=== PATIENT | female | born 1985 | race Caucasian/White ===

== ENCOUNTER 2023-10-08 14:00 | Emergency (ER) | payer OTHER, SELFPAY ==
[2023-10-08 14:09] VITALS: BP 132/97; PULSE 91; RESP 18; TEMP 36.8; O2SAT 97; BMI 35.0
[2023-10-08 14:37] LABS: Basophils % 0.4 %; Eosinophils # 0.1 10^3/uL (0.0-0.8); Eosinophils % 1.6 %; Hematocrit 47.6 % (36-47); Lymphocytes # 2.7 10^3/uL (0.8-4.8); Lymphocytes % 37.2 %; Mean Corpuscular HGB Conc 34.5 g/dL (30-55); Mean Corpuscular Hemoglobin 36.4 pg (27-33); Mean Corpuscular Volume 105.5 fl (85-98); Mean Platelet Volume 10.8 fL (7.4-10.4); Monocytes # 0.9 10^3/uL (0.2-0.9); Monocytes % 12.2 %; Neutrophils # 3.53 10^3/uL (1.8-7.7); Neutrophils % 48.3 %; Nucleated Red Blood Cells % 0 %; Platelet Count 169 10^3/cmm (157-399); Red Blood Count 4.51 10^6/uL (3.85-5.65); Red Cell Distribution Width 14.9 % (12.1-15.1); White Blood Count 7.31 10^3/uL (3.29-11.43)
[2023-10-08 14:52] LABS: Alanine Aminotransferase 26 U/L (0-33); Albumin Level 3.9 g/dL (3.5-5.2); Alkaline Phosphatase 90 U/L (35-105); Anion Gap 18.8 (5-19); Aspartate Amino Transferase 37 U/L (0-32); Blood Urea Nitrogen 15 mg/dL (6-20); Calcium 9.5 mg/dL (8.5-10.5); Carbon Dioxide 28 mmol/L (22-29); Chloride 95 mmol/L (98-107); Creatinine Clr Calc Pharmacy 92.0166; Globulin 4.5 g/dL (1.3-4.6); Glomerular Filtration Rate 79.4 mL/min (90-130); Glucose 98 mg/dL (65-115); Lipase 26 U/L (13-60); Osmolality Calculated 287 mOsm/kg (285-295); Potassium 3.8 mmol/L (3.5-5.1); Sodium 138 mmol/L (136-145); Total Bilirubin 0.8 mg/dL (0.15-1.2); Total Protein 8.4 g/dL (6.6-8.7)
[2023-10-08 15:01] LABS: HCG, Serum Qual Negative (Negative)
--- NOTE | 2023-10-08 16:59 | CTR_ITS ---
PROCEDURE INFORMATION: Exam: CT Abdomen And Pelvis With Contrast Exam date and time: 10/08/2023 5:32 PM Age: 38 years old Clinical indication: Nausea and vomiting; Abdominal pain; Generalized; Prior surgery; Surgery date: 6+ months; Surgery type: 5 csections, gallbladder, ectopic preg where they took one tube; Additional info: Abd pain TECHNIQUE: Imaging protocol: Computed tomography of the abdomen and pelvis with contrast. Axial, coronal and sagittal reformatted images were created and reviewed. Radiation optimization: All CT scans at this facility use at least one of these dose optimization techniques: automated exposure control; mA and/or kV adjustment per patient size (includes targeted exams where dose is matched to clinical indication); or iterative reconstruction. Contrast material: OMNI 350; Contrast volume: 100 ml; Contrast route: INTRAVENOUS (IV); COMPARISON: No relevant prior studies available. RADIATION DOSE METRICS: Total DLP (mGy-cm): 818.92 FINDINGS: Diaphragm: Small hiatal hernia. Liver: Mild hepatomegaly. Gallbladder and biliary ducts: Status post cholecystectomy. No biliary ductal dilatation. Pancreas: Unremarkable. Spleen: 5 mm low-density splenic lesion, too small to characterize. Adrenal glands: Normal. No mass. Kidneys and ureters: 7 mm low-density right renal lesion, too small to characterize sacral follow-up no radiodense calculi. No hydronephrosis. Stomach and bowel: Moderate amount of retained stool in the colon. Colonic diverticulosis without evidence of diverticulitis. No obstruction. No bowel wall Scattered colonic diverticula without evidence of diverticulitis. No obstruction. No bowel wall thickening. No pneumatosis. Appendix: Normal. Intraperitoneal space: No free fluid. No organized fluid collection. No free air. Vasculature: Mild atherosclerotic disease. No aneurysm or dissection. Lymph nodes: No pathologically enlarged lymph nodes. Urinary bladder: Decompressed urinary bladder, which limits evaluation for wall thickening. Reproductive: 3.3 x 3.2 cm left adnexal cystic lesion, likely a follicular cyst. Bones/joints: No acute osseous abnormality. Degenerative changes. Soft tissues: Midline ventral pelvic hernia, containing nonobstructed small bowel. CT/CT abdomen pelvis w con* [id number]: 1[address] No CT evidence of acute intra-abdominal or pelvic pathology. 2. Additional findings, as above. COMMENTS: Consistent with the [employer]'s Incidental Findings Committee white paper (J Am Maki Radiol 2018): Any incidental renal lesion less than 1 cm or classified as too small to characterize, or any incidental cystic renal lesion characterized as simple-appearing, is likely benign. No follow-up imaging is recommended for these lesions per consensus recommendations based on imaging criteria.
[2023-10-08 17:06] VITALS: BP 143/99; PULSE 63; O2SAT 92
--- NOTE | 2023-10-08 17:08 | ED_ITS ---
HPI - Abdominal Pain 2 General: Chief Complaint: Abdominal Pain Stated Complaint: abd pain, vomitting Time Seen by Provider: 10/08/23 16:46 Source: patient Mode of arrival: ambulatory History of Present Illness: 38-year-old female who presents to the e mergency room with abdominal pain and vomiting for the last 8 days has not been eating or drinking. Has had multiple previous sections still has her appendix and gallbladder [place]. She states pain is midline both supra and infraumbilical. She denies dysuria urgency or frequency. No fever sweats or chills. Has been very nauseous feels like she needs to vomit no diarrhea no hematochezia melena hematemesis coffee- ground emesis no dysuria urgency or frequency no history of kidney stones MD elicited complaint: abdominal pain Onset (ago): day(s) (8) Pain Consistency: constant Location: Diffuse Severity: severe Quality: cramping Exacerbating factors: eating Relieving factors: nothing Associated Symptoms: Denies anorexia, belching, bloating, change in bowel habits, change in stool character, chills, coffee ground emesis, constipation, GI cramping, diarrhea, dyspepsia, dysuria, excessive flatus, fever(s), heartburn, hematochezia, hematuria, hematemesis, fecal incontinence, loose stools, melena, nausea, poor appetite, syncope and vomiting Review of Systems 2 Const: Denies: fever(s) or chills Card: Denies: syncope Resp: Denies: dyspnea GI: Reports: abdominal pain; Denies: nausea, vomiting, hematemesis, coffee ground emesis, heartburn, diarrhea, constipation, bloating, GI cramping, belching, excessive flatus, fecal incontinence, change in bowel habits, change in stool character, hematochezia or melena : Denies: dysuria or hematuria Musc: Denies: neck pain or back pain Skin/Breast: Denies: rash Physical Exam 2 Const: GENERAL APPEARANCE: cooperative and comfortable O RIENTATION/CONSCIOUSNESS: Yes awake, Yes oriented to person, Yes oriented to place and Yes oriented to time HENMT: COMMON NORMALS: normocephalic, atraumatic and hearing grossly normal bilaterally HEAD & SCALP: normocephalic and atraumatic Resp: COMMON NORMALS: normal respiratory effort, No retractions, No use of accessory muscles and clear to auscultation bilaterally AUSCULTATION: clear to auscultation bilaterally Cardio: COMMON NORMALS: regular rate, regular rhythm and No murmurs present (Cardio) RATE: regular rate RHYTHM: regular rhythm GI: COMMON NORMALS: No hepatosplenomegaly present AUSCULTATION: Yes Hypoactive bowel sounds present PALPATION: Yes Tenderness to palpation present (GI) (Diffusely tender nonspecific), No Guarding due to palpation present (GI) and Yes No hepatosplenomegaly present Extremity: COMMON NORMALS: normal to inspection, capillary refill normal, no clubbing, cyanosis or edema, no calf tenderness and no pedal edema Neuro: SENSORIUM/ORIENTATION: Yes oriented to person, Yes oriented to place and Yes oriented to time Skin: COMMON NORMALS: no rashes or lesions noted GENERAL SKIN EXAM: no rashes or lesions noted Course 2 Vital Signs: Vital signs: Vital Signs Temperature 98.2 F 10/08/23 14:09 Pulse Rate 78 10/08/23 19:03 Respiratory Rate 18 10/08/23 19:03 Blood Pressure 162/103 10/08/23 19:03 Pulse Oximetry 90 10/08/23 19:03 Oxygen Delivery Me thod Nasal Cannula 10/08/23 18:33 Oxygen Flow Rate 2 10/08/23 18:33 MDM - Abdominal Pain Medical Decision Making Labs and imaging reviewed. CT showed a ovarian cyst incidental finding she does not really have any pelvic pain. She is improved after IV fluids. Her other labs are reviewed no clinically significant findings noted. Did note that on the discharge vitals that said that the patient was on 2 L by nasal cannula patient was not on any oxygen during the ER visit. Discussed findings with the patient. Discharge patient home promethazine as needed recheck with primary care if not improving. Suspect viral gastroenteritis. Should follow-up with her primary regarding the ovarian cyst. Medical Records I reviewed the patient's medical records. Lab Data I reviewed the patient's lab results. 10/08/23 14:24 10/08/23 14:24 Labs/Radiology: Radiology Impressions Abdomen/Pelvis CT 10/08/23 16:[address]: 1[address] evidence of acute intra-abdominal or pelvic pathology. 2. Additional findings, as above. COMMENTS: Consistent with the [employer]'s Incidental Findings Committee white paper (J Am Maki Radiol 2018): Any incidental renal lesion less than 1 cm or classified as too small to characterize, or any incidental cystic renal lesion characterized as simple-appearing, is likely benign. No follow-up imaging is recommended for these lesions per consensus recommendations based on imaging criteria. Laboratory Results WBC 7.31 10^3/uL (3.29-11.43) 10/08/23 14:24 RBC 4.51 10^6/uL (3.85-5.65) 10/08/23 14:24 Hgb 16.40 g/dL (11.27-16.99) 10/08/23 14:24 Hct 47.6 % (36-47) H 10/08/23 14:24 MCV 105.5 fl (85-98) H 10/08/23 14:24 MCH 36.4 pg (27-33) H 10/08/23 14:24 MCHC 34.5 g/dL (30-55) 10/08/23 14:24 RDW 14.9 % (12.1-15.1) 10/08/23 14:24 Plt Count 169 10^3/cmm (157-399) 10/08/23 14:24 MPV 10.8 fL (7.4-10.4) H 10/08/23 14:24 Neut % (Auto) 48.3 % 10/08/23 14: Lymph % (Auto) 37.2 % 10/08/23 14:24 Lipscomb % (Auto) 12.2 % 10/08/23 14:24 Eos % (Auto) 1.6 % 10/08/23 14: Baso % (Auto) 0.4 % 10/08/23 14: Neut # (Auto) 3.53 10^3/uL (1.8-7.7) 10/08/23 14:24 Lymph # (Auto) 2.7 10^3/uL (0.8-4.8) 10/08/23 14:24 Lipscomb # (Auto) 0.9 10^3/uL (0.2-0.9) 10/08/23 14:24 Eos # (Auto) 0.1 10^3/uL (0.0-0.8) 10/08/23 14:24 Baso # (Auto) 0.0 10^3/uL (0.0-0.1) 10/08/23 14:24 Nucleated RBC % (auto) 0 % 10/08/23 14:24 Nucleated RBCs # 0.0 /100WBC 10/08/23 14:24 Sodium 138 mmol/L (136-145) 10/08/23 14:24 Potassium 3.8 mmol/L (3.5-5.1) 10/08/23 14:24 Chloride 95 mmol/L (98-107) L 10/08/23 14:24 Carbon Dioxide 28 mmol/L (22-29) 10/08/23 14:24 Anion Gap 18.8 (5-19) 10/08/23 14:24 BUN 15 mg/dL (6-20) 10/08/23 14:24 Creatinine 0.8 mg/dL (0.5-0.9) 10/08/23 14:24 GFR Calculation 79.4 mL/min (90-130) L 10/08/23 14:24 Glucose 98 mg/dL (65-115) 10/08/23 14:24 Calculated Osmolality 287 mOsm/kg (285-295) 10/08/23 14:24 Calcium 9.5 mg/dL (8.5-10.5) 10/08/23 14:24 Total Bilirubin 0.8 mg/dL (0.15-1.2) 10/08/23 14:24 AST 37 U/L (0-32) H 10/08/23 14:24 ALT 26 U/L (0-33) 10/08/23 14:24 Alkaline Phosphatase 90 U/L (35-105) 10/08/23 14:24 Total Protein 8.4 g/dL (6.6-8.7) 10/08/23 14:24 Albumin 3.9 g/dL (3.5-5.2) 10/08/23 14:24 Globulin 4.5 g/dL (1.3-4.6) 10/08/23 14: Lipase 26 U/L (13-60) 10/08/23 14:24 HCG, Qual Negative (Negative) 10/08/23 14:24 Urine Color Dark yellow (Yellow) 10/08/23 17:28 Urine Appearance Slightly cloudy (CLEAR) 10/08/23 17:28 Urine pH 6.5 (5-7) 10/08/23 17:28 Ur Specific [place] 1.020 (1.005-1.030) 10/08/23 17:28 Urine Protein 1+ (Negative) H 10/08/23 17:28 Urine Glucose (UA) Norm (Normal) 10/08/23 17:28 Urine Ketones 1+ (Negative) H 10/08/23 17:28 Urine Blood Neg (Negative) 10/08/23 17:28 Urine Nitrate Negative (Negative) 10/08/23 17:28 Urine Bilirubin 1+ (Negative) H 10/08/23 17:28 Urine Urobilinogen 4 mg/dL (Negative) H 10/08/23 17:28 Ur Leukocyte Esterase Trace (Negative) H 10/08/23 17:28 Urine RBC 0-4 /hpf (0-2) H 10/08/23 17:28 Urine WBC 0-4 /hpf (0-5) H 10/08/23 17:28 Ur Squamous Epith Cells 5-10 /hpf (0-5) H 10/08/23 17:28 Amorphous Sediment Not Reportable 10/08/23 17:28 Urine Bacteria Trace /hpf (NONE) 10/08/23 17:28 Urine Mucus 2+ /hpf 10/08/23 17:28 All radiology interpretation(s) finalized by discharge Discharge Plan Discharge Patient Disposition: Home Clinical Impression: Gastroenteritis Condition: Stable Prescriptions: New promethazine 25 mg tablet 25 mg PO Q6H PRN (Reason: nausea and vomiting) Qty: 20 0RF Discharge Orders: Discharge ED (Routine); Ordered 10/08/23 Ordered By: Saran Thompson Discharge Diet: Clear Liquid Discharge Activity: Increase activity as tolerated Patient Instructions: Opioid Safety, Pain Management Activity Restrictions/Additional Instructions: Thank you for choosing [facility] for your healthcare needs today. It is very important that you follow up as instructed or that you return to the Emergency Department should you have concerns or if your condition changes or worsens in any way. You were seen in the emergency room for persistent nausea vomiting ER white count was normal hemoglobin is normal electrolytes were not significantly abnormal. Recommend clear liquid diet for next 24 to 48 hours and advance as tolerated promethazine as needed for persistent nausea vomiting. Coding Level of Care Code ED Manager Business for Zhanna Yi
[2023-10-08] MEDS: iohexol 350 mg/mL 500 mL Btl (per mL) IV (17:34)
[2023-10-08] MEDS: sodium chloride 0.9% 1,000 ML 999 ML IV (18:22)
[2023-10-08] MEDS: ondansetron 2 mg/ML SDV 2 mL 4 MG IVP (18:23)
[2023-10-08 18:24] VITALS: BP 152/110; PULSE 62; O2SAT 94
[2023-10-08] MEDS: morphine 4 mg/mL SDV 1 mL IVP (18:27)
[2023-10-08 18:33] VITALS: BP 154/109; PULSE 65; O2SAT 98
[2023-10-08 18:42] LABS: Add Urine Microscopic? YES; Bacteria Urine TRACE /hpf; Bilirubin Urine 1+ (Negative); Blood Urine Neg (Negative); Glucose Urine UA Norm (Normal); Ketones Urine 1+ (Negative); Leukocyte Esterase Urine Trace (Negative); Mucus Urine 2+ /hpf; Nitrate Urine Negative (Negative); Protein Urine 1+ (Negative); RBC Urine 0-4 /hpf (0-2); Urine Appearance Slightly Cloudy (CLEAR); Urine Color Dark Yellow (Yellow); Urobilinogen Urine 4 mg/dL (Negative); WBC Urine 0-4 /hpf (0-5); pH Urine 6.5 (5-7)
[2023-10-08 18:43] LABS: Add Urine Culture? No
[2023-10-08 19:03] VITALS: BP 162/103; PULSE 78; RESP 18; O2SAT 90
== END 2023-10-08 19:04 | disposition home or self-care (01) ==
PROVIDERS: Emergency Medicine; Emergency Provider Family Medicine
DX: K52.9 Noninfective gastroenteritis and colitis, unspecified (principal)
CPT/HCPCS: 36415; 74177; 80053; 81001; 83690; 84703; 85025; 96374; 96375; 99285; J2270; J2405; J7030; Q9967